=== PATIENT | male | born 1965 | race Caucasian/White ===

== ENCOUNTER 2025-02-17 13:58 | Emergency (ER) | payer MEDICARE, OTHER ==
[~2025-02-17] VITALS: Ht 180.3 cm; Wt 106.8 kg
[~2025-02-17 13:58] MED LIST: DIVA-112 PO; HALO10TA20 PO; RISP3TAB35 PO
[2025-02-17 14:00] VITALS: TEMP 98.5
[2025-02-17] MEDS ORDERED: SITA100 PO (14:04)
[2025-02-17] MEDS ORDERED: EMPA25TA3 PO (14:04)
[2025-02-17] MEDS ORDERED: TOPI-257 PO (14:04)
[2025-02-17] MEDS ORDERED: HALO10TA21 PO (14:04)
[2025-02-17] MEDS ORDERED: SEMA14TA2 PO (14:04)
[2025-02-17] MEDS ORDERED: ATOR40TA28 PO (14:04)
[2025-02-17 14:55] LABS: BASOPHILS % (AUTO) 0.4 % (0.0-2.0); EOSINOPHILS % (AUTO) 0.8 % (1.0-6.0); HEMOGLOBIN 16.5 g/dL (13.5-17.5); LYMPHOCYTES # (AUTO) 3.6 K/uL (1.0-4.8); MEAN CORPUSCULAR HGB CONC 33.7 G/dL (31.0-37.0); MEAN CORPUSCULAR VOLUME 89 fL (80-100); MONOCYTES # (AUTO) 0.7 K/uL (0.1-1.0); MONOCYTES % (AUTO) 6.6 % (2.0-9.0); NEUTROPHILS # (AUTO) 5.6 K/uL (1.8-7.7); NEUTROPHILS % (AUTO) 56.2 % (40.0-70.0); PLATELET COUNT (AUTO) 288 K/uL (150-450); RED BLOOD CELL COUNT(AUTO) 5.49 MIL/uL (4.50-5.90); RED CELL DISTRIBUTION WIDTH 13.6 % (11.5-14.5)
[2025-02-17 15:04] LABS: ANION GAP 11 mmol/L (8-16); CALCIUM, TOTAL 9.5 mg/dL (8.8-10.5); CARBON DIOXIDE 24 mmol/L (22-29); CHLORIDE 101 mmol/L (98-107); CREATININE 1.14 mg/dL (0.60-1.30); GLOMERULAR FILTR. RATE CALC > 60 mL/min (>60); POTASSIUM 4.1 mmol/L (3.5-5.1); SODIUM SERUM 136 mmol/L (136-145); UREA NITROGEN, BLOOD 15 mg/dL (7-18)
[2025-02-17 15:06] LABS: GLUCOSE,RANDOM 415 mg/dL (70-110)
[2025-02-17 15:07] LABS: ACETONE,BLOOD NEGATIVE (NEGATIVE)
[2025-02-17 16:00] VITALS: BP 129/81; PULSE 76; RESP 18; O2SAT 96
[2025-02-17] MEDS ORDERED: PRED-554 PO (16:13)
[2025-02-17] MEDS: PredniSONE 20 MG TABLET PO ONE (16:25)
[2025-02-17] MEDS: INSULIN LISPRO 100 UNITS/ML SQ ONE (16:25)
[2025-02-17] MEDS: PEG 400/HYPROMELLOSE/GLYCERIN 15 ML OPHTHALMIC SOLUTION OS ONE (16:41)
== END 2025-02-17 16:44 | disposition home or self-care (01) ==
LOC: EMS 13:58
DX: G51.0 Bell's palsy (principal); E11.65 Type 2 diabetes mellitus with hyperglycemia; F25.9 Schizoaffective disorder, unspecified; Z79.84 Long term (current) use of oral hypoglycemic drugs; Z79.899 Other long term (current) drug therapy
CPT/HCPCS: 99283; 80048; 82009; 85025; 36415; 82962; 96372; J7512; J1815